=== PATIENT | male | born 1965 | race Caucasian/White ===

== ENCOUNTER → 2016-05-16 | Outpatient (CLI) | payer OTHER ==
[2016-05-16 16:41] LABS: HEMATOCRIT 41.2 % (42-52)
[2016-05-16 16:52] LABS: ALT/SGPT 20 U/L (12-78); BLOOD UREA NITROGEN 10 mg/dl (7-18); CALCIUM 8.9 mg/dl (8.5-10.1); CARBON DIOXIDE 30 mmol/L (21-32); CHLORIDE 108 mmol/L (98-107); CREATININE 0.83 mg/dl (0.60-1.40); GLUCOSE 120 mg/dl (70-99); POTASSIUM 3.9 mmol/L (3.5-5.1); SODIUM 142 mmol/L (136-145)
[2016-05-16 17:02] LABS: ALB/GLOB RATIO 1.3 (0.9-2); ALKALINE PHOSPHATASE 50 U/L (45-117); AST/SGOT 16 U/L (15-37); THYROID STIMULATING HORMONE 0.432 uIu/ml (0.300-4.500)
[2016-05-16 18:11] LABS: RATIO 8.9 mcg/mg (0-30.0)
[2016-05-17 06:06] LABS: ESTIMATED AVERAGE GLUCOSE 272 mg/dl; HA1C FLAG Normal (Normal)
[2016-05-22 04:19] LABS: GLUTAMIC ACID DECARBOXYLASE-65 <5 IU/mL (<5); ISLET CELL AB NEGATIVE (NEGATIVE)
== END | disposition home or self-care (01) ==
LOC: C.LAB1850 14:58
PROVIDERS: ATTEND Internal Medicine Endocrinology, Diabetes & Metabolism
DX: E11.42 Type 2 diabetes mellitus with diabetic polyneuropathy (principal); R53.83 Other fatigue

== ENCOUNTER 2018-09-28 12:02 | Inpatient (IN) ==
[2018-09-28] MEDS ORDERED: ALUMINUM/MAGNESIUM SUSP 30 ML UDC PO PRN (13:53)
[2018-09-28] MEDS ORDERED: ONDANSETRON INJ 2 MG/ML 2 ML VIAL IV PRN (13:53)
[2018-09-28] MEDS ORDERED: MAGNESIUM HYDROXIDE SUSP 30 ML UDC PO PRN (13:53)
[2018-09-28] MEDS ORDERED: POLYETHYLENE (MIRALAX) 17 GM PACK PO PRN (13:53)
[2018-09-28] MEDS ORDERED: CARBOHYDRATES FOR HYPOGLYCEMIA PO PRN (14:03)
[2018-09-28] MEDS ORDERED: GLUCOSE 40% GEL 15 GM TUBE PO PRN (14:03)
[2018-09-28] MEDS ORDERED: GLUCOSE 10 TABS/TUBE PO PRN (14:03)
[2018-09-28] MEDS ORDERED: DEXTROSE 50% 50 ML SYRINGE IV PRN (14:03)
[2018-09-28] MEDS ORDERED: GLUCAGON FOR INJ 1 MG VIAL SQ PRN (14:03)
[2018-09-28 14:21] LABS: Basophils # (auto) 0.03 K/uL (0-0.2); Basophils % (auto) 0.4 %; Eosinophils # (auto) 0.13 K/uL (0-0.5); Eosinophils % (auto) 1.6 %; Hematocrit (blood only) 38.3 % (42-52); Hemoglobin 13.4 g/dL (14.0-18.0); Immature Granulocytes # (auto) 0.01 K/uL (0.00-0.02); Immature Granulocytes % (auto) 0.1 %; Lymphocytes # (auto) 2.36 K/uL (1.2-3.4); Mean Corpuscular Volume 81.7 fL (80-100); Mean Platelet Volume 9.9 fL (7.4-10.4); Monocytes # (auto) 0.68 K/uL (0.11-0.59); Monocytes % (auto) 8.4 %; Neutrophils # (auto) 4.93 K/uL (1.4-6.5); Neutrophils % (auto) 60.5 %; Platelet Count 230 K/uL (130-400); RDW Coefficient of Variation 12.8 % (11.5-14.5); RDW Standard Deviation 38.1 fL (36.4-46.3); Red Blood Count 4.69 M/uL (4.7-6.1); White Blood Count 8.14 K/uL (4.8-10.8)
[2018-09-28] MEDS: SODIUM CHLORIDE 0.9% 1000ML 1,000 ML IV SCH ×2 (14:25→22:20)
[2018-09-28 14:42] LABS: Alanine Aminotransferase 16 U/L (12-78); Albumin Level 3.9 gm/dl (3.4-5.0); Aspartate Aminotransferase 10 U/L (15-37); BUN Creatinine Ratio 25.5 (10-20); Blood Urea Nitrogen 18 mg/dl (7-18); Calcium 9.6 mg/dl (8.5-10.1); Carbon Dioxide 29 mmol/L (21-32); Chloride 105 mmol/L (98-107); Creatinine Clr Calc Pharmacy 108.4 ml/min; Est GFR (African American) 125.9; Est GFR (Non-African American) 108.6; Glucose 112 mg/dl (70-99); Magnesium 1.9 mg/dl (1.8-2.4); Potassium 3.4 mmol/L (3.5-5.1); Sodium 142 mmol/L (136-145)
[2018-09-28 14:47] LABS: Albumin Globulin Ratio 1.3 (0.9-2); Alkaline Phosphatase 35 U/L (45-117); Bilirubin,Total 0.9 mg/dl (0.2-1); Globulin 3.1 gm/dl (2.5-4.0); Troponin I < 0.015 ng/ml (0-0.045)
--- NOTE | 2018-09-28 16:22 | History & Physical Report ---
Date of Service September 28, 2018 Assessment & Plan (1) Failure to thrive in adult: Pt is a 53 y/o M who was direct admitted by PCP for concerns of persistent weight loss of up to 45lbs in the last 5 months. Previously diagnosed with gastroparesis, and has had extensive imaging of his abdomen in the last several months. Failure to thrive: -continue IV NS @ 125mls/hr for rehydration -start marinol for stimulation of appetite -monitor for refeeding -AM CMP, CBC, Mg ordered Gastroparesis: -continue Linzess for gastric motility -start toradol for abdominal pain -hold narcotics for pain control as will only worsen gastroparesis Type 2 Diabetes Mellitus: -start basal insulin for continued glucose control upon feeding -HgbA1c in AM Code: Full DVT ppx: lovenox Dispo: observe on med/surg (2) Gastroparesis: (3) T2DM (type 2 diabetes mellitus): History of Present Illness Chief Complaint: Failure to Thrive Primary Care Provider: Miguel Angel Tyler DO 53y/o male who presented to clinic with continue weight loss (45lbs) over the last 4-5 months. Since May 2018, he has noticed a constant abdominal pain and fullness that is worsened by meals. Over this time he has been seen in several hospitals, and has had consistent worsening of his symptoms. Has had to take increasing number of days off of work as his ability to eat has declined. Was prescribed Reglan three times daily without improvement, before being switched to Miralax and Linzess. Had gastric emptying study completed demonstrating incomplete emptying with retained food 15hrs after meal. Took first dose of Linzess on 09/25 with marked increase in frequency of bowel movements over the following three days. Bowel movements typically follow a 2-3 day of constipation followed by 12-16 hrs of loose BMs cycle. Was told that he needs to follow a gastorparetic diet consisting of low fiber/low fat frequent meals in order to maximize his gastric motility; at this point, diet mostly consists of juices, mashed potatoes, grits, and soft blended/pureed foods. Only able to tolerate a half cup of food daily before feeling like he is going to vomit. Predominatly has pain in his upper abdomen daily, with exacerbation of the pain when eating more food on a given, some symptomatic in the pain when laying on his side. Has been using marijuana daily for increase in appetite, and decrease in pain. Allergies Allergy/AdvReac Type Severity Reaction Status Date / Time azithromycin IV form AdvReac Redness of Uncoded 06/24/18 19:39 Skin Home Medications Home Medications Medication Instructions Recorded Confirmed Type glyburide 5 mg PO BID 06/24/18 09/28/18 History metformin 1,000 mg PO BID 06/24/18 09/28/18 History linaclotide [Linzess] 72 mcg PO DAILY 09/28/18 09/28/18 History Past Med/Surg History Medical History Failure to thrive in adult Dysesthesia (Chronic) Loss of sensation Warts of foot Gastroparesis (Inactive) Family History Other No significant family history Social History Preferred Language: Welsh [employer] Required: No Beliefs That Will Affect Care: None Current Living Situation: Spouse Other Information That Helps Us Care for You: No Feels Safe at Home: Yes Safety Concerns: Feels Safe At This Time Smoking Status: Former smoker Smoking End Date: 01/2017 ; Hx Alcohol Use: No Hx Substance Use: Yes substance use type: marijuana Last Used Substance Other:: 2 wks ago Review of Systems Constitutional: + body aches and + weakness; no fever and no chills Eyes: no diplopia, no decreased night vision and no loss of peripheral vision Respiratory: no cough, no dyspnea and no wheezing Cardiovascular: no chest pain, no dyspnea, no palpitations, no syncope and no edema Gastrointestinal: + abdominal pain, + bloating and + nausea; no vomiting and no constipation Genitourinary: no dysuria, no urinary frequency and no hematuria Musculoskeletal: + radicular pain, + muscle weakness and + body aches Neurologic: + unsteadiness and + generalized weakness; no headache(s) Hematologic / Lymphatic: no easy bruising and no lymphadenopathy Physical Exam Constitutional: + thin, + frail appearing, cooperative and + malnourished (temporal wasting) Eyes: PERRL and EOM intact bilaterally Neck: normal visual inspection; neck nontender Thyroid: no thyromegaly, thyroid not firm, no thyroid mass and thyroid nontender Respiratory: normal respiratory effort and + respiratory distress Auscultation: lungs clear to auscultation bilaterally; no crackles, no rales and no wheezes Cardiovascular: Rate/Rhythm: regular rate and regular rhythm Heart Sounds: normal S1 and normal S2; no gallop, no murmur and no cardiac rub Gastrointestinal (Abdomen): Inspection/Auscultation: + scaphoid, + abdominal surgical incision (LLQ from appendectomy) and + high-pitched sounds Percussion/Palpation: + abdomen tender, + guarding and abdomen soft; no hepatosplenomegaly, no hernia and no abdominal mass Skin: + turgor decreased; no rashes, no ulcers, no induration and no wound Lymphatic: no lymphadenopathy and no lymphedema Results & Data Vital Signs (Past 12 Hours) Vital Signs Temp Pulse Resp BP Pulse Ox 09/28/18 15:54 36.8 C 110 H 16 112/73 98 09/28/18 13:29 36.6 C 109 H 14 107/76 98 Laboratory Results 09/28/18 09/28/18 09/28/18 Range/Units 17:08 16:57 14:15 WBC (4.8-10.8) K/uL RBC (4.7-6.1) M/uL Hgb (14.0-18.0) g/dL Hct (42-52) % MCV (80-100) fL MCH (25-34) pg MCHC (32-36) g/dL RDW Std Deviation (36.4-46.3) fL RDW Coeff of Alyssa (11.5-14.5) % Plt Count (130-400) K/uL MPV (7.4-10.4) fL Immature Gran % (Auto) % Neut % (Auto) % Lymph % (Auto) % [place] % (Auto) % Eos % (Auto) % Baso % (Auto) % Immature Gran # (Auto) (0.00-0.02) K/uL Neut # (Auto) (1.4-6.5) K/uL Lymph # (Auto) (1.2-3.4) K/uL [place] # (Auto) (0.11-0.59) K/uL Eos # (Auto) (0-0.5) K/uL Baso # (Auto) (0-0.2) K/uL PT 11.0 (9.0-12.0) Seconds INR 1.1 (0.9-1.1) Sodium (136-145) mmol/L Potassium (3.5-5.1) mmol/L Chloride (98-107) mmol/L Carbon Dioxide (21-32) mmol/L Anion Gap (3-11) BUN (7-18) mg/dl Creatinine (0.6-1.4) mg/dl Est Cr Clr Drug Dosing ml/min Est GFR ( Amer) Est GFR (Non-Af Amer) BUN/Creatinine Ratio (10-20) Glucose (70-99) mg/dl POC Glucose 144 H 109 H (70-99) Calcium (8.5-10.1) mg/dl Magnesium (1.8-2.4) mg/dl Total Bilirubin (0.2-1) mg/dl AST (15-37) U/L ALT (12-78) U/L Alkaline Phosphatase (45-117) U/L Troponin I (0-0.045) ng/ml Total Protein (6.4-8.2) gm/dl Albumin (3.4-5.0) gm/dl Globulin (2.5-4.0) gm/dl Albumin/Globulin Ratio (0.9-2) Lipase (73-393) U/L 09/28/18 09/28/18 Range/Units 14:09 14:09 WBC 8.14 (4.8-10.8) K/uL RBC 4.69 L (4.7-6.1) M/uL Hgb 13.4 L (14.0-18.0) g/dL Hct 38.3 L (42-52) % MCV 81.7 (80-100) fL MCH 28.6 (25-34) pg MCHC 35.0 (32-36) g/dL RDW Std Deviation 38.1 (36.4-46.3) fL RDW Coeff of Alyssa 12.8 (11.5-14.5) % Plt Count 230 (130-400) K/uL MPV 9.9 (7.4-10.4) fL Immature Gran % (Auto) 0.1 % Neut % (Auto) 60.5 % Lymph % (Auto) 29.0 % [place] % (Auto) 8.4 % Eos % (Auto) 1.6 % Baso % (Auto) 0.4 % Immature Gran # (Auto) 0.01 (0.00-0.02) K/uL Neut # (Auto) 4.93 (1.4-6.5) K/uL Lymph # (Auto) 2.36 (1.2-3.4) K/uL [place] # (Auto) 0.68 H (0.11-0.59) K/uL Eos # (Auto) 0.13 (0-0.5) K/uL Baso # (Auto) 0.03 (0-0.2) K/uL PT (9.0-12.0) Seconds INR (0.9-1.1) Sodium 142 (136-145) mmol/L Potassium 3.4 L (3.5-5.1) mmol/L Chloride 105 (98-107) mmol/L Carbon Dioxide 29 (21-32) mmol/L Anion Gap 8.0 (3-11) BUN 18 (7-18) mg/dl Creatinine 0.71 (0.6-1.4) mg/dl Est Cr Clr Drug Dosing 108.4 ml/min Est GFR ( Amer) 125.9 Est GFR (Non-Af Amer) 108.6 BUN/Creatinine Ratio 25.5 H (10-20) Glucose 112 H (70-99) mg/dl POC Glucose (70-99) Calcium 9.6 (8.5-10.1) mg/dl Magnesium 1.9 (1.8-2.4) mg/dl Total Bilirubin 0.9 (0.2-1) mg/dl AST 10 L (15-37) U/L ALT 16 (12-78) U/L Alkaline Phosphatase 35 L (45-117) U/L Troponin I < 0.015 (0-0.045) ng/ml Total Protein 7.0 (6.4-8.2) gm/dl Albumin 3.9 (3.4-5.0) gm/dl Globulin 3.1 (2.5-4.0) gm/dl Albumin/Globulin Ratio 1.3 (0.9-2) Lipase 136 (73-393) U/L Medications Administered Current Inpatient Medications Acetaminophen (Tylenol) 650 mg PO Q4H PRN PRN Reason: pain/fever Stop: 10/28/18 13:52 Al Hydrox/Mg Hydrox/Simethicone (Maalox) 30 ml PO Q6H PRN PRN Reason: Dyspepsia Stop: 10/28/18 13:52 Dextrose (Dextrose 50%) 25 - 50 ml IV UD PRN; Protocol PRN Reason: Hypoglycemia Protocol Stop: 10/28/18 14:02 Dronabinol (Marinol) 5 mg PO BID [facility] Stop: 10/28/18 20:59 Dronabinol (Marinol) 5 mg PO ONE ONE Stop: 09/28/18 19:01 Enoxaparin Sodium (Lovenox) 40 mg SQ QAM [facility] Stop: 10/29/18 08:59 Glucagon (Glucagen) 1 mg SQ UD PRN; Protocol PRN Reason: Hypoglycemia Protocol Stop: 10/28/18 14:02 Glucose (Glucose 40%) 15 - 30 gm PO UD PRN; Protocol PRN Reason: Hypoglycemia Protocol Stop: 10/28/18 14:02 Glucose (Dex4 Glucose) 4 - 8 tabs PO UD PRN; Protocol PRN Reason: Hypoglycemia Protocol Stop: 10/28/18 14:02 Sodium Chloride (Nss 1000ml) 1,000 mls @ 125 mls/hr IV .Q8H [facility] Stop: 10/28/18 14:59 Last Admin: 09/28/18 14:25 Dose: 125 mls/hr Documented by: Insulin Aspart (Novolog Flexpen) 0 units SC ACHS [facility] Stop: 10/28/18 16:29 Last Admin: 09/28/18 17:59 Dose: 2 units Documented by: Insulin Glargine (Lantus Solostar Pen) 11 units SC BID [facility] Stop: 10/28/18 20:59 Ketorolac Tromethamine (Toradol) 15 mg IV Q6H PRN PRN Reason: Pain Stop: 10/03/18 17:50 Magnesium Hydroxide (Milk Of Magnesia) 30 ml PO Q6H PRN PRN Reason: Constipation Stop: 10/28/18 13:52 Miscellaneous (Carbohydrates For Hypoglycemia) 15 - 30 gm PO UD PRN PRN Reason: Hypoglycemia Treatment Stop: 10/28/18 14:02 Ondansetron HCl (Zofran) 4 mg IV Q6H PRN PRN Reason: Nausea Stop: 10/28/18 13:52 Polyethylene Glycol (Miralax Powder Packet) 17 gm PO DAILY PRN PRN Reason: Constipation Stop: 10/28/18 13:52 Code Status & VTE Plan VTE Prophylaxis Plan VTE Prophylaxis will be ordered: Yes Supervising Physician Co-Signing Physician Notes I personally examined the patient and verified all hunt points of history and exam, discussed case, and agree with decision making with Dr Moise. Feels full right after eating, nausea. Weight loss. Ongoing for quite a while. Extensive work-up at [place]. Seen today at PCPs office, and given his overall failure to thrive admitted to our service. He notes at times he has used marijuana at home with a degree of symptomatic relief. Vitals noted, in general he is awake and alert pleasant no distress. HEENT normocephalic atraumatic mucous membranes moist. Breathing unlabored no accessory muscle use good effort. Skin shows no rashes no pallor or icterus. Neuro shows no focal deficits. Abdominal pain/nauseaextensive work-up at [place] is effectively ruled out other diagnoses, it appears that this is likely due to his gastroparesis, compounded by chronic constipation. Continue bowel regimen. Discussed risks benefits and alternatives, patient himself is done extensive reading on gastroparesis as well, we all agreed to give trial to Marinol. Gentle IV fluids. Follow oral intake. DVT prophylaxisLovenox. Otherwise as above PG Care Time/CCT Total # of Minutes Spent Total Time Spent with Patient: Total time spent is greater than 50% in coordination of care (as documented) at patient's floor/unit and/or counseling patient: Resident Activity Tracking Resident Involvement: Resident Care Provided Care Provided: Adult Hospital Medicine
[2018-09-28 17:45] LABS: INR 1.1 (0.9-1.1)
[2018-09-28] MEDS: INSULIN ASPART 100 UNITS/ML 3 ML PEN SC SCH ×2 (17:59→21:10)
[2018-09-28] MEDS ORDERED: DRONABINOL 2.5 MG CAP PO ONE (19:00)
[2018-09-28] MEDS: DRONABINOL 2.5 MG CAP PO SCH (21:07)
[2018-09-28] MEDS: INSULIN GLARGINE SOLOSTAR 100 UNITS/ML 3 ML PEN SC SCH (21:09)
[2018-09-28] MEDS: KETOROLAC TROMETHAMINE 15 MG/ML VIAL IV PRN (21:13)
[2018-09-29] MEDS: ACETAMINOPHEN 325 MG TAB PO PRN ×2 (01:55→23:50)
[2018-09-29] MEDS: KETOROLAC TROMETHAMINE 15 MG/ML VIAL IV PRN ×3 (04:45→18:34)
[2018-09-29] MEDS: SODIUM CHLORIDE 0.9% 1000ML 1,000 ML IV SCH ×2 (05:22→13:19)
--- NOTE | 2018-09-29 07:07 | Family Medicine Progress Note ---
Date of Service September 29, 2018 Assessment & Plan (1) Failure to thrive in adult: Pt is a 53 y/o M who was direct admitted by PCP for concerns of persistent weight loss of up to 45lbs in the last 5 months. Previously diagnosed with gastroparesis, and has had extensive imaging of his abdomen in the last several months. Failure to thrive: -continue IV NS @ 125mls/hr for rehydration -increase marinol to 10mg for stimulation of appetite -monitor for refeeding -AM BMP, CBC, Mg ordered Gastroparesis: -continue Linzess for gastric motility -continue toradol for abdominal pain -hold narcotics for pain control as will only worsen gastroparesis Type 2 Diabetes Mellitus: -continue basal insulin for continued glucose control upon feeding -HgbA1c 7.8 Code: Full DVT ppx: lovenox Dispo: observe on med/surg (2) Gastroparesis: (3) T2DM (type 2 diabetes mellitus): Supervising Physician Co-Signing Physician Notes I personally examined the patient and verified all hunt points of history and exam, discussed case, and agree with decision making with Dr Moise. Still not doing great, but may be a little bit better, had a little bit better relief of pain, may be was able to eat a little bit more. Is optimistic about his progress, but also quite reserved knowing that he has a problem that will not entirely go away. Very interested in any and all modalities that may help him, discussed OMT, and he is very willing to give therapeutic trial. Vitals noted, in general he is awake and alert pleasant no distress. HEENT normocephalic atraumatic mucous membranes moist. Breathing unlabored no accessory muscle use good effort. Skin shows no rashes no pallor or icterus. Neuro shows no focal deficits. Osteopathic structural exam shows right-sided thoracic inlet high tone/tender/decreased range of motionmyofascial releaseimproved a little. Right-sided thoracic paraspinals in the T5-9 region high in tone, tender, decreased range of motiondirect myofascial and inhibitory pressureimproved. Patient tolerated well. Abdominal pain/nauseaextensive work-up at [place] is effectively ruled out other diagnoses, it appears that this is likely due to his gastroparesis, compounded by chronic constipation. Continue Linzess, increase Marinol, continue supportive care Hypokalemiareplete. Seems to be more in line with a degree of malnutrition as well as dilution from IV fluids (potassium is now been added to the fluids) more than a refeeding syndrome. Somatic dysfunction thoracic region-OMT as above. We discussed he would likely benefit from a therapeutic trial of OMT ongoing as an outpatient, given that any improvement would likely be slow to affect DVT prophylaxisLovenox. Otherwise as above Subjective Pt continues to feel full this morning, was able to tolerate some more food and fluids overnight, with some increase in his nausea and pain. Gem like the marinol in combination with the toradol was beneficial in helping address his pain and helping him sleep. Despite only sleeping for about an hour at a time, felt like his sleep overnight was considerably more restful than it had been previous. Been able to urinate overnight, but has had no bowel movements at this time. Open to continuing linzess and taking it on a daily basis in order to promote increased bowel movements and regularity. Review of Systems Constitutional: + fatigue and + weakness; no fever and no sweats Eyes: no blind spots, no diplopia and no loss of peripheral vision Respiratory: + dyspnea; no cough and no wheezing Cardiovascular: no chest pain, no palpitations and no edema Gastrointestinal: + abdominal pain, + early satiety, + nausea and + constipation; no vomiting and no pain with swallowing Hematologic / Lymphatic: no lymphadenopathy and no night sweats Physical Exam Constitutional: + thin, + frail appearing, cooperative and + malnourished (temporal wasting) Neck: normal visual inspection; neck nontender Thyroid: no thyromegaly, thyroid not firm and thyroid nontender Respiratory: normal respiratory effort Auscultation: lungs clear to auscultation bilaterally; no crackles, no rales and no wheezes Cardiovascular: Rate/Rhythm: regular rate and regular rhythm Heart Sounds: normal S1 and normal S2; no gallop, no murmur and no cardiac rub Gastrointestinal (Abdomen): Inspection/Auscultation: + scaphoid, + abdominal surgical incision (LLQ from appendectomy) and + high-pitched sounds Percussion/Palpation: + abdomen tender and abdomen soft; no guarding, no hepatosplenomegaly, no hernia and no abdominal mass Lymphatic: no lymphadenopathy and no lymphedema Results & Data Vital Signs (Past 12 Hours) Vital Signs Temp Pulse Resp BP Pulse Ox 0820/19 07:05 36.6 C 75 18 117/80 98 09/28/18 22:56 36.8 C 92 H 16 137/90 99 Laboratory Results 09/28/18 09/28/18 09/28/18 Range/Units 21:06 17:08 16:57 WBC (4.8-10.8) K/uL RBC (4.7-6.1) M/uL Hgb (14.0-18.0) g/dL Hct (42-52) % MCV (80-100) fL MCH (25-34) pg MCHC (32-36) g/dL RDW Std Deviation (36.4-46.3) fL RDW Coeff of Alyssa (11.5-14.5) % Plt Count (130-400) K/uL MPV (7.4-10.4) fL Immature Gran % (Auto) % Neut % (Auto) % Lymph % (Auto) % [place] % (Auto) % Eos % (Auto) % Baso % (Auto) % Immature Gran # (Auto) (0.00-0.02) K/uL Neut # (Auto) (1.4-6.5) K/uL Lymph # (Auto) (1.2-3.4) K/uL [place] # (Auto) (0.11-0.59) K/uL Eos # (Auto) (0-0.5) K/uL Baso # (Auto) (0-0.2) K/uL PT 11.0 (9.0-12.0) Seconds INR 1.1 (0.9-1.1) Sodium (136-145) mmol/L Potassium (3.5-5.1) mmol/L Chloride (98-107) mmol/L Carbon Dioxide (21-32) mmol/L Anion Gap (3-11) BUN (7-18) mg/dl Creatinine (0.6-1.4) mg/dl Est Cr Clr Drug Dosing ml/min Est GFR ( Amer) Est GFR (Non-Af Amer) BUN/Creatinine Ratio (10-20) Glucose (70-99) mg/dl POC Glucose 152 H 144 H (70-99) Calcium (8.5-10.1) mg/dl Magnesium (1.8-2.4) mg/dl Total Bilirubin (0.2-1) mg/dl AST (15-37) U/L ALT (12-78) U/L Alkaline Phosphatase (45-117) U/L Troponin I (0-0.045) ng/ml Total Protein (6.4-8.2) gm/dl Albumin (3.4-5.0) gm/dl Globulin (2.5-4.0) gm/dl Albumin/Globulin Ratio (0.9-2) Lipase (73-393) U/L 09/28/18 09/28/18 09/28/18 Range/Units 14:15 14:09 14:09 WBC 8.14 (4.8-10.8) K/uL RBC 4.69 L (4.7-6.1) M/uL Hgb 13.4 L (14.0-18.0) g/dL Hct 38.3 L (42-52) % MCV 81.7 (80-100) fL MCH 28.6 (25-34) pg MCHC 35.0 (32-36) g/dL RDW Std Deviation 38.1 (36.4-46.3) fL RDW Coeff of Alyssa 12.8 (11.5-14.5) % Plt Count 230 (130-400) K/uL MPV 9.9 (7.4-10.4) fL Immature Gran % (Auto) 0.1 % Neut % (Auto) 60.5 % Lymph % (Auto) 29.0 % [place] % (Auto) 8.4 % Eos % (Auto) 1.6 % Baso % (Auto) 0.4 % Immature Gran # (Auto) 0.01 (0.00-0.02) K/uL Neut # (Auto) 4.93 (1.4-6.5) K/uL Lymph # (Auto) 2.36 (1.2-3.4) K/uL [place] # (Auto) 0.68 H (0.11-0.59) K/uL Eos # (Auto) 0.13 (0-0.5) K/uL Baso # (Auto) 0.03 (0-0.2) K/uL PT (9.0-12.0) Seconds INR (0.9-1.1) Sodium 142 (136-145) mmol/L Potassium 3.4 L (3.5-5.1) mmol/L Chloride 105 (98-107) mmol/L Carbon Dioxide 29 (21-32) mmol/L Anion Gap 8.0 (3-11) BUN 18 (7-18) mg/dl Creatinine 0.71 (0.6-1.4) mg/dl Est Cr Clr Drug Dosing 108.4 ml/min Est GFR ( Amer) 125.9 Est GFR (Non-Af Amer) 108.6 BUN/Creatinine Ratio 25.5 H (10-20) Glucose 112 H (70-99) mg/dl POC Glucose 109 H (70-99) Calcium 9.6 (8.5-10.1) mg/dl Magnesium 1.9 (1.8-2.4) mg/dl Total Bilirubin 0.9 (0.2-1) mg/dl AST 10 L (15-37) U/L ALT 16 (12-78) U/L Alkaline Phosphatase 35 L (45-117) U/L Troponin I < 0.015 (0-0.045) ng/ml Total Protein 7.0 (6.4-8.2) gm/dl Albumin 3.9 (3.4-5.0) gm/dl Globulin 3.1 (2.5-4.0) gm/dl Albumin/Globulin Ratio 1.3 (0.9-2) Lipase 136 (73-393) U/L Medications Administered Current Inpatient Medications Acetaminophen (Tylenol) 650 mg PO Q4H PRN PRN Reason: pain/fever Stop: 10/28/18 13:52 Last Admin: 09/29/18 01:55 Dose: 650 mg Documented by: Al Hydrox/Mg Hydrox/Simethicone (Maalox) 30 ml PO Q6H PRN PRN Reason: Dyspepsia Stop: 10/28/18 13:52 Dextrose (Dextrose 50%) 25 - 50 ml IV UD PRN; Protocol PRN Reason: Hypoglycemia Protocol Stop: 10/28/18 14:02 Dronabinol (Marinol) 5 mg PO BID [facility] Stop: 10/28/18 20:59 Last Admin: 09/28/18 21:07 Dose: 5 mg Documented by: Enoxaparin Sodium (Lovenox) 40 mg SQ QAM [facility] Stop: 10/29/18 08:59 Glucagon (Glucagen) 1 mg SQ UD PRN; Protocol PRN Reason: Hypoglycemia Protocol Stop: 10/28/18 14:02 Glucose (Glucose 40%) 15 - 30 gm PO UD PRN; Protocol PRN Reason: Hypoglycemia Protocol Stop: 10/28/18 14:02 Glucose (Dex4 Glucose) 4 - 8 tabs PO UD PRN; Protocol PRN Reason: Hypoglycemia Protocol Stop: 10/28/18 14:02 Sodium Chloride (Nss 1000ml) 1,000 mls @ 125 mls/hr IV .Q8H [facility] Stop: 10/28/18 14:59 Last Admin: 09/29/18 05:22 Dose: 125 mls/hr Documented by: Insulin Aspart (Novolog Flexpen) 0 units SC ACHS [facility] Stop: 10/28/18 16:29 Last Admin: 09/28/18 21:10 Dose: 1 units Documented by: Insulin Glargine (Lantus Solostar Pen) 11 units SC BID [facility] Stop: 10/28/18 20:59 Last Admin: 09/28/18 21:09 Dose: 11 units Documented by: Ketorolac Tromethamine (Toradol) 15 mg IV Q6H PRN PRN Reason: Pain Stop: 10/03/18 17:50 Last Admin: 09/29/18 04:45 Dose: 15 mg Documented by: Linaclotide (Linzess) 72 mcg PO DAILY [facility] Stop: 10/29/18 08:59 Magnesium Hydroxide (Milk Of Magnesia) 30 ml PO Q6H PRN PRN Reason: Constipation Stop: 10/28/18 13:52 Miscellaneous (Carbohydrates For Hypoglycemia) 15 - 30 gm PO UD PRN PRN Reason: Hypoglycemia Treatment Stop: 10/28/18 14:02 Ondansetron HCl (Zofran) 4 mg IV Q6H PRN PRN Reason: Nausea Stop: 10/28/18 13:52 Polyethylene Glycol (Miralax Powder Packet) 17 gm PO DAILY PRN PRN Reason: Constipation Stop: 10/28/18 13:52 PG Care Time/CCT Total # of Minutes Spent Total Time Spent with Patient: Total time spent is greater than 50% in coordination of care (as documented) at patient's floor/unit and/or counseling patient: Resident Activity Tracking Resident Involvement: Resident Care Provided Care Provided: Adult Hospital Medicine
[2018-09-29 07:25] LABS: Basophils # (auto) 0.03 K/uL (0-0.2); Basophils % (auto) 0.4 %; Eosinophils # (auto) 0.14 K/uL (0-0.5); Hematocrit (blood only) 33.3 % (42-52); Hemoglobin 11.6 g/dL (14.0-18.0); Immature Granulocytes # (auto) 0.01 K/uL (0.00-0.02); Immature Granulocytes % (auto) 0.1 %; Lymphocytes # (auto) 2.22 K/uL (1.2-3.4); Lymphocytes % (auto) 31.6 %; Mean Corpuscular Hgb Conc 34.8 g/dL (32-36); Mean Corpuscular Volume 81.8 fL (80-100); Mean Platelet Volume 9.6 fL (7.4-10.4); Monocytes # (auto) 0.62 K/uL (0.11-0.59); Monocytes % (auto) 8.8 %; Neutrophils % (auto) 57.1 %; Platelet Count 202 K/uL (130-400); RDW Coefficient of Variation 12.8 % (11.5-14.5); RDW Standard Deviation 38.4 fL (36.4-46.3); Red Blood Count 4.07 M/uL (4.7-6.1); White Blood Count 7.02 K/uL (4.8-10.8)
[2018-09-29 07:30] LABS: Estimated Average Glucose 177 mg/dl; Hemoglobin A1C 7.8 % (4.5-5.6)
[2018-09-29 07:56] LABS: BUN Creatinine Ratio 22.8 (10-20); Calcium 8.3 mg/dl (8.5-10.1); Creatinine Clr Calc Pharmacy 106.9 ml/min; Est GFR (African American) 125.2; Potassium 3.2 mmol/L (3.5-5.1)
[2018-09-29] MEDS: DRONABINOL 2.5 MG CAP PO SCH ×2 (08:59→21:02)
[2018-09-29] MEDS: ENOXAPARIN INJ 40 MG/0.4 ML SYR SQ SCH (08:59)
[2018-09-29] MEDS: LINACLOTIDE 72 MCG CAPSULE PO SCH (08:59)
[2018-09-29] MEDS: INSULIN ASPART 100 UNITS/ML 3 ML PEN SC SCH ×4 (09:02→21:00)
[2018-09-29] MEDS: INSULIN GLARGINE SOLOSTAR 100 UNITS/ML 3 ML PEN SC SCH ×2 (09:03→21:03)
[2018-09-29] MEDS: NSS + 20MEQ KCL 20 MEQ/1,000 ML BAG IV SCH ×2 (15:46→23:45)
[2018-09-29] MEDS ORDERED: POTASSIUM CHLORIDE 20MEQ/15ML 473ML PO ONE (16:00)
[2018-09-30] MEDS: KETOROLAC TROMETHAMINE 15 MG/ML VIAL IV PRN ×4 (00:33→20:19)
[2018-09-30] MEDS: NSS + 20MEQ KCL 20 MEQ/1,000 ML BAG IV SCH (06:29)
[2018-09-30] MEDS: DRONABINOL 2.5 MG CAP PO SCH ×2 (09:13→21:33)
[2018-09-30] MEDS: LINACLOTIDE 72 MCG CAPSULE PO SCH (09:14)
[2018-09-30] MEDS: INSULIN GLARGINE SOLOSTAR 100 UNITS/ML 3 ML PEN SC SCH ×2 (09:14→21:34)
[2018-09-30] MEDS: ENOXAPARIN INJ 40 MG/0.4 ML SYR SQ SCH (09:14)
[2018-09-30] MEDS: INSULIN ASPART 100 UNITS/ML 3 ML PEN SC SCH ×4 (09:16→21:35)
[2018-09-30 10:32] LABS: BUN Creatinine Ratio 6.3 (10-20); Calcium 8.6 mg/dl (8.5-10.1); Creatinine Clr Calc Pharmacy 124.1 ml/min; Est GFR (African American) 133.1; Est GFR (Non-African American) 114.9; Potassium 3.5 mmol/L (3.5-5.1)
[2018-09-30] MEDS: ACETAMINOPHEN 325 MG TAB PO PRN ×2 (10:49→16:29)
[2018-09-30] MEDS ORDERED: LINACLOTIDE 72 MCG CAPSULE PO ONE (11:00)
--- NOTE | 2018-09-30 15:52 | Family Medicine Progress Note ---
Date of Service September 30, 2018 Assessment & Plan (1) Failure to thrive in adult: Pt is a 53 y/o M who was direct admitted by PCP for concerns of persistent weight loss of up to 45lbs in the last 5 months. Previously diagnosed with gastroparesis, and has had extensive imaging of his abdomen in the last several months. Failure to thrive: -discontinuing IV NS @ 125mls/hr for rehydration -continue marinol to 10mg for stimulation of appetite -monitor for refeeding -AM BMP, CBC, Mg ordered Gastroparesis: -increase Linzess to 290mcg daily for gastric motility -continue toradol for abdominal pain -hold narcotics for pain control as will only worsen gastroparesis Type 2 Diabetes Mellitus: -continue basal insulin for continued glucose control -HgbA1c 7.8 Code: Full DVT ppx: lovenox Dispo: observe on med/surg (2) Gastroparesis: (3) T2DM (type 2 diabetes mellitus): Supervising Physician Co-Signing Physician Notes I personally examined the patient and verified all hunt points of history and exam, discussed case, and agree with decision making with Dr Moise. Better appetite, was able to eat a little more. Did still feel full, bloated, painful afterwards, but not to any extreme severity, and does believe he is able to eat more successfully. Vitals noted, in general he is awake and alert pleasant no distress. HEENT normocephalic atraumatic mucous membranes moist. Breathing unlabored no accessory muscle use good effort. Skin shows no rashes no pallor or icterus. Neuro shows no focal deficits. Abdomen soft nondistended mild epigastric tenderness no guarding/rebound/rigidity. Abdominal pain/nauseaextensive work-up at [facility] is effectively ruled out other diagnoses, it appears that this is likely due to his gastroparesis, compounded by chronic constipation. Has not had bowel movementincrease Linzess. Continue Marinol at maximum dosing. DC IV fluids and see how he does being able to eat and drink entirely on his own, hopefully home in the next day or 2. Hypokalemiarepleted Somatic dysfunction thoracic region-OMT done 09/29. He would likely benefit from a therapeutic trial of OMT ongoing as an outpatient, given that any improvement would likely be slow to affect DVT prophylaxisLovenox. Otherwise as above Subjective Pt continues to feel full this morning, was able to tolerate some more food and fluids overnight, with some increase in his nausea and pain. Continues to feel like the marinol in combination with the toradol was beneficial in helping address his pain and helping him sleep. Open to increasing linzess to promote increased bowel movements and regularity. Review of Systems Constitutional: + fatigue and + weakness; no fever and no sweats Respiratory: + dyspnea; no cough and no wheezing Gastrointestinal: + abdominal pain, + early satiety, + nausea and + constipation; no vomiting and no pain with swallowing Musculoskeletal: + myalgia and + body aches Neurologic: no headache(s) Physical Exam Constitutional: + thin, + frail appearing, cooperative and + malnourished (temporal wasting) Eyes: PERRL and EOM intact bilaterally Neck: Thyroid: thyroid nontender Respiratory: normal respiratory effort Auscultation: lungs clear to auscultation bilaterally; no crackles, no rales and no wheezes Cardiovascular: Rate/Rhythm: regular rate and regular rhythm Heart Sounds: normal S1 and normal S2; no gallop, no murmur and no cardiac rub Gastrointestinal (Abdomen): Inspection/Auscultation: + scaphoid and + abdominal surgical incision (LLQ from appendectomy) Percussion/Palpation: + abdomen tender and abdomen soft; no guarding, no hepatosplenomegaly, no hernia and no abdominal mass Skin: no rashes, no ulcers, no induration and no wound Lymphatic: no lymphadenopathy and no lymphedema Results & Data Vital Signs (Past 12 Hours) Vital Signs Temp Pulse Pulse Resp BP Pulse Ox 09/30/18 15:10 36.9 C 104 H 17 134/89 99 09/30/18 07:55 36.7 C 94 H 18 132/86 98 Laboratory Results 09/30/18 09/30/18 09/30/18 Range/Units 11:52 09:54 07:57 Sodium 142 (136-145) mmol/L Potassium 3.5 (3.5-5.1) mmol/L Chloride 108 H (98-107) mmol/L Carbon Dioxide 29 (21-32) mmol/L Anion Gap 5.0 (3-11) BUN 4 L D (7-18) mg/dl Creatinine 0.62 (0.6-1.4) mg/dl Est Cr Clr Drug Dosing 124.1 ml/min Est GFR ( Amer) 133.1 Est GFR (Non-Af Amer) 114.9 BUN/Creatinine Ratio 6.3 L (10-20) Glucose 117 H (70-99) mg/dl POC Glucose 106 H 76 (70-99) Calcium 8.6 (8.5-10.1) mg/dl 09/29/18 09/29/18 Range/Units 20:55 17:25 Sodium (136-145) mmol/L Potassium (3.5-5.1) mmol/L Chloride (98-107) mmol/L Carbon Dioxide (21-32) mmol/L Anion Gap (3-11) BUN (7-18) mg/dl Creatinine (0.6-1.4) mg/dl Est Cr Clr Drug Dosing ml/min Est GFR ( Amer) Est GFR (Non-Af Amer) BUN/Creatinine Ratio (10-20) Glucose (70-99) mg/dl POC Glucose 92 140 H (70-99) Calcium (8.5-10.1) mg/dl Medications Administered Current Inpatient Medications Acetaminophen (Tylenol) 650 mg PO Q4H PRN PRN Reason: pain/fever Stop: 10/28/18 13:52 Last Admin: 09/30/18 10:49 Dose: 650 mg Documented by: Al Hydrox/Mg Hydrox/Simethicone (Maalox) 30 ml PO Q6H PRN PRN Reason: Dyspepsia Stop: 10/28/18 13:52 Dextrose (Dextrose 50%) 25 - 50 ml IV UD PRN; Protocol PRN Reason: Hypoglycemia Protocol Stop: 10/28/18 14:02 Dronabinol (Marinol) 10 mg PO BID [facility] Stop: 10/29/18 20:59 Last Admin: 09/30/18 09:13 Dose: 10 mg Documented by: Enoxaparin Sodium (Lovenox) 40 mg SQ QAM [facility] Stop: 10/29/18 08:59 Last Admin: 09/30/18 09:14 Dose: 40 mg Documented by: Glucagon (Glucagen) 1 mg SQ UD PRN; Protocol PRN Reason: Hypoglycemia Protocol Stop: 10/28/18 14:02 Glucose (Glucose 40%) 15 - 30 gm PO UD PRN; Protocol PRN Reason: Hypoglycemia Protocol Stop: 10/28/18 14:02 Glucose (Dex4 Glucose) 4 - 8 tabs PO UD PRN; Protocol PRN Reason: Hypoglycemia Protocol Stop: 10/28/18 14:02 Insulin Aspart (Novolog Flexpen) 0 units SC ACHS [facility] Stop: 10/28/18 16:29 Last Admin: 09/30/18 13:01 Dose: 4 units Documented by: Insulin Glargine (Lantus Solostar Pen) 11 units SC BID [facility] Stop: 10/28/18 20:59 Last Admin: 09/30/18 09:14 Dose: 11 units Documented by: Ketorolac Tromethamine (Toradol) 15 mg IV Q6H PRN PRN Reason: Pain Stop: 10/03/18 17:50 Last Admin: 09/30/18 13:25 Dose: 15 mg Documented by: Linaclotide (Linzess) 288 mcg PO DAILYBB [facility] Stop: 10/31/18 06:29 Magnesium Hydroxide (Milk Of Magnesia) 30 ml PO Q6H PRN PRN Reason: Constipation Stop: 10/28/18 13:52 Miscellaneous (Carbohydrates For Hypoglycemia) 15 - 30 gm PO UD PRN PRN Reason: Hypoglycemia Treatment Stop: 10/28/18 14:02 Ondansetron HCl (Zofran) 4 mg IV Q6H PRN PRN Reason: Nausea Stop: 10/28/18 13:52 Polyethylene Glycol (Miralax Powder Packet) 17 gm PO DAILY PRN PRN Reason: Constipation Stop: 10/28/18 13:52 PG Care Time/CCT Total # of Minutes Spent Total Time Spent with Patient: Total time spent is greater than 50% in coordination of care (as documented) at patient's floor/unit and/or counseling patient: Resident Activity Tracking Resident Involvement: Resident Care Provided Care Provided: Adult Hospital Medicine
[2018-10-01] MEDS: ACETAMINOPHEN 325 MG TAB PO PRN ×2 (00:23→05:33)
[2018-10-01] MEDS: KETOROLAC TROMETHAMINE 15 MG/ML VIAL IV PRN ×2 (03:07→08:55)
[2018-10-01] MEDS ORDERED: LINACLOTIDE 72 MCG CAPSULE PO SCH (06:30)
[2018-10-01 07:25] LABS: Basophils # (auto) 0.04 K/uL (0-0.2); Basophils % (auto) 0.7 %; Eosinophils # (auto) 0.13 K/uL (0-0.5); Eosinophils % (auto) 2.3 %; Hematocrit (blood only) 34.6 % (42-52); Hemoglobin 12.3 g/dL (14.0-18.0); Immature Granulocytes # (auto) 0.01 K/uL (0.00-0.02); Immature Granulocytes % (auto) 0.2 %; Lymphocytes # (auto) 2.09 K/uL (1.2-3.4); Lymphocytes % (auto) 36.9 %; Mean Corpuscular Hgb Conc 35.5 g/dL (32-36); Mean Corpuscular Volume 81.4 fL (80-100); Mean Platelet Volume 9.5 fL (7.4-10.4); Monocytes # (auto) 0.59 K/uL (0.11-0.59); Monocytes % (auto) 10.4 %; Neutrophils # (auto) 2.81 K/uL (1.4-6.5); Neutrophils % (auto) 49.5 %; Platelet Count 223 K/uL (130-400); RDW Coefficient of Variation 12.9 % (11.5-14.5); RDW Standard Deviation 38.5 fL (36.4-46.3); Red Blood Count 4.25 M/uL (4.7-6.1); White Blood Count 5.67 K/uL (4.8-10.8)
[2018-10-01 08:04] LABS: BUN Creatinine Ratio 6.4 (10-20); Creatinine Clr Calc Pharmacy 114.9 ml/min; Est GFR (African American) 128.9; Est GFR (Non-African American) 111.3; Potassium 3.7 mmol/L (3.5-5.1)
[2018-10-01] MEDS: INSULIN ASPART 100 UNITS/ML 3 ML PEN SC SCH ×2 (09:14→12:54)
[2018-10-01] MEDS: INSULIN GLARGINE SOLOSTAR 100 UNITS/ML 3 ML PEN SC SCH (09:15)
[2018-10-01] MEDS: ENOXAPARIN INJ 40 MG/0.4 ML SYR SQ SCH (09:15)
[2018-10-01] MEDS: DRONABINOL 2.5 MG CAP PO SCH (09:15)
[2018-10-01] MEDS ORDERED: TRAMADOL HCL 50 MG TABLET PO STA (11:46)
--- NOTE | 2018-10-01 11:55 | Discharge Summary ---
Date of Service October 01, 2018 Admission HPI Per Admitting Provider 53y/o male who presented to clinic with continue weight loss (45lbs) over the last 4-5 months. Since May 2018, he has noticed a constant abdominal pain and fullness that is worsened by meals. Over this time he has been seen in several hospitals, and has had consistent worsening of his symptoms. Has had to take increasing number of days off of work as his ability to eat has declined. Was prescribed Reglan three times daily without improvement, before being switched to Miralax and Linzess. Had gastric emptying study completed demonstrating incomplete emptying with retained food 15hrs after meal. Took first dose of Linzess on 09/25 with marked increase in frequency of bowel movements over the following three days. Bowel movements typically follow a 2-3 day of constipation followed by 12-16 hrs of loose BMs cycle. Was told that he needs to follow a gastorparetic diet consisting of low fiber/low fat frequent meals in order to maximize his gastric motility; at this point, diet mostly consists of juices, mashed potatoes, grits, and soft blended/pureed foods. Only able to tolerate a half cup of food daily before feeling like he is going to vomit. Predominatly has pain in his upper abdomen daily, with exacerbation of the pain when eating more food on a given, some symptomatic in the pain when laying on his side. Has been using marijuana daily for increase in appetite, and decrease in pain. Admission Exam (Per Admitting) Constitutional + thin, + frail appearing, cooperative and + malnourished (temporal wasting) Eyes PERRL and EOM intact bilaterally Neck normal visual inspection; neck nontender Thyroid: thyroid nontender Respiratory normal respiratory effort Auscultation: lungs clear to auscultation bilaterally; no crackles, no rales and no wheezes Cardiovascular Rate/Rhythm: regular rate and regular rhythm Heart Sounds: normal S1 and normal S2; no gallop, no murmur and no cardiac rub Gastrointestinal (Abdomen) Inspection/Auscultation: + scaphoid and + abdominal surgical incision (LLQ from appendectomy) Percussion/Palpation: + abdomen tender and abdomen soft; no guarding, no hepatosplenomegaly, no hernia and no abdominal mass Skin no rashes, no ulcers, no induration and no wound Lymphatic no lymphadenopathy and no lymphedema Discharge Data Consultations 09/28/18 13:57 Consult Case Management - Discharge Planning Routine Hospital Course (1) Failure to thrive in adult: Pt is a 53 y/o M who was direct admitted by PCP for concerns of persistent weight loss of up to 45lbs in the last 5 months. Previously diagnosed with gastroparesis, and has had extensive imaging of his abdomen in the last several months. Failure to thrive: -continue Marinol 10mg BID for stimulation of appetite -monitor weights closely for return of nutrition -pt advised to eat smaller meals approximately 6 times a day, or graze on foods continually throughout the day; during days with increased difficulty with meals, pt advised to consume bananas, rice, applesauce, toast (B.R.A.T. meals) for increased caloric input with smaller meal sizes. -would recommend close follow-up Gastroparesis: -continue Linzess to 290mcg daily for improved lower GI motility -continue Mobic 7.5mg BID for GI pain (consider alternating monthly with OTC Aleve for relief of progressive dose amplification) -continue Ultram 25mg PRN daily for breakthrough severe pain -if pt has prolonged periods of time without improvement of GI symptoms, consider adding Reglan or Erythromycin temporarily for improved upper GI motility Type 2 Diabetes Mellitus: -continue metformin, and glyburide; consider changing medications for improved control after patient has been able to stabilize eating habits -HgbA1c 7.8 on admission Code Status: Full (2) Gastroparesis: (3) T2DM (type 2 diabetes mellitus): Supervising Physician Co-Signing Physician Notes I personally examined the patient and verified all hunt points of history and exam, discussed case, and agree with decision making with Dr Moise. Feeling up to going home. Eating overall is a little better. Extensive discussions on diet changes, medications, diabetes management, etc. All questions answered to the best my ability. Vitals noted, in general he is awake and alert pleasant no distress. HEENT n ormocephalic atraumatic mucous membranes moist. Breathing unlabored no accessory muscle use good effort. Skin shows no rashes no pallor or icterus. Neuro shows no focal deficits. Abdominal pain/nauseaextensive work-up at [place] is effectively ruled out other diagnoses, it appears that this is likely due to his gastroparesis, compounded by chronic constipation. While obviously not doing well yet, he and I agree that he is definitely stable for home. Current med regimen will be Marinol 10 mg 290 mg daily. Pain regimen as above with meloxicam and tramadol (cautioned about possible sedation or constipation with tramadol, but given that anti-inflammatories alone were not helping enough, and Tylenol was not helping at all, this seems to be the best next option). Discussed alternating pain medicines as well so as to minimize cumulative dosing type side effects. Hypokalemiarepleted Somatic dysfunction thoracic region-OMT done 09/29. He would likely benefit from a therapeutic trial of OMT ongoing as an outpatient, given that any improvement would likely be slow to affect DVT prophylaxisLovenox utilized during his stay. Otherwise as above, greater than 30 minutes Resident Activity Tracking Resident Involvement: Resident Care Provided Care Provided: Adult Hospital Medicine
== END 2018-10-01 13:40 | disposition home or self-care (01) | DRG 641 ==
LOC: 3N 12:53